=== PATIENT | female | born 1935 | race Caucasian/White ===

== ENCOUNTER 2020-01-18 14:55 | Observation (INO) ==
[2020-01-18] MEDS ORDERED: ALBUTEROL SULFATE/IPRATROPIUM 3 ML NEBU IH ONE (15:16)
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
[2020-01-18 15:48] LABS: Mean Corpuscular Hgb Conc 27.1 g/dl (32-36); NRBC# 0.1 k/mm3 (0-1); Neutrophil # 10.4 K/mm3 (1.3-6.0); Neutrophil % 76.4 % (42-75.0); Platelet Count 325 K/mm3 (150-450); Red Blood Count 2.14 M/mm3 (4.2-5.4); Red Cell Distribution Width 14.5 % (11.5-14.0); White Blood Count 13.6 K/mm3 (4.0-10.5)
[2020-01-18 15:53] LABS: Hematocrit 22.9 % (37.0-47.0); Hemoglobin 6.2 gm/dL (12.5-16.0)
[2020-01-18 16:02] LABS: Troponin I 0.042 ng/mL (0.00-0.10)
[2020-01-18 16:04] LABS: Albumin * 2.7 gm/dl (3.4-5.0); Anion Gap 10.9 mmol/L (6.8-13.8); BUN/Creatinine Ratio 32.8 (9.0-21.6); Bilirubin, Total 0.3 mg/dL (0.0-1.1); Ca. Corrected For Albumin 9.9 mg/dL (8.4-10.2); Calcium * 9.2 mg/dL (7.9-10.9); Carbon Dioxide 30.3 mmol/L (24-32.6); Potassium 4.2 mmol/L (3.4-4.6); Total Protein 6.1 gm/dL (6.2-8.2)
[2020-01-18] MEDS ORDERED: FUROSEMIDE 10 MG/ML VIAL IV ONE (16:07)
[2020-01-18] MEDS ORDERED: PANTOPRAZOLE SODIUM 40 MG in NORMAL SALINE 100 ML IV SCH (17:15)
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
[2020-01-18 17:27] LABS: Iron 10 mcg/dL (35-120); Transferrin Sat. (% Sat.) 3 % (15-55)
[2020-01-18 17:55] LABS: Folate 17.6 ng/mL (8.6-58.9)
[2020-01-18] MEDS ORDERED: FUROSEMIDE 10 MG/ML VIAL ONE (21:41)
[2020-01-18 23:02] LABS: Hematocrit 25.4 % (37.0-47.0)
[2020-01-18 23:05] LABS: Hemoglobin 7.3 gm/dL (12.5-16.0)
[2020-01-19] MEDS ORDERED: ACETAMINOPHEN 325 MG TABLET PO PRN (00:36)
[2020-01-19 06:00] LABS: Hemoglobin 8.6 gm/dL (12.5-16.0); Mean Corpuscular Hemoglobin 29.7 pg (27-31); Mean Corpuscular Hgb Conc 29.7 g/dl (32-36); Mean Platelet Volume 10.4 fl (8-12.5); NRBC# 0.1 k/mm3 (0-1); Neutrophil # 9.2 K/mm3 (1.3-6.0); Neutrophil % 73.6 % (42-75.0); Platelet Count 295 K/mm3 (150-450); Red Cell Distribution Width 16.4 % (11.5-14.0); White Blood Count 12.5 K/mm3 (4.0-10.5)
[2020-01-19 07:00] LABS: BUN/Creatinine Ratio 31.6 (9.0-21.6); Calcium * 8.6 mg/dL (7.9-10.9); Carbon Dioxide 28.1 mmol/L (24-32.6); Estimated Creat Clear 31.5; Potassium 4.1 mmol/L (3.4-4.6)
[2020-01-19] MEDS: INSULIN LISPRO 100 UNITS/ML VIAL SC SCH ×2 (07:56→12:11)
[2020-01-19] MEDS: POLYVINYL ALCOHOL 150 DROP BTL EACHEYE SCH ×2 (07:59→12:12)
[2020-01-19] MEDS: GABAPENTIN 300 MG CAPSULE PO SCH ×2 (08:01→12:13)
[2020-01-19] MEDS: CALCIUM CARBONATE 500 MG TAB.CHEW PO SCH ×2 (08:03→12:13)
[2020-01-19] MEDS ORDERED: FUROSEMIDE 10 MG/ML VIAL IV ONE ×2 (08:42→13:30)
--- NOTE | 2020-01-19 08:42 | PN ---
Progess Note - Interim Date: 01/19/20 Time: 08:38 Narrative: 01/19/20 08:38 Feels better this morming. Positive stool for occultblood x 1. Iron defeciency and B12 deficiency anemia. Hb is up to 8.6. Will give 1 more unit and will switch her to obswrvation. Will leave it to her PCP to see if family wants to be more aggressive with her anemia.
[2020-01-19] MEDS ORDERED: ASCORBIC ACID 500 MG TABLET PO SCH (09:00)
[2020-01-19] MEDS ORDERED: FUROSEMIDE 20 MG TABLET PO SCH (09:00)
[2020-01-19] MEDS ORDERED: MIRABEGRON 25 MG TAB.PO.ER PO SCH (09:00)
[2020-01-19] MEDS ORDERED: ROSUVASTATIN CALCIUM 10 MG TABLET PO SCH (09:00)
[2020-01-19] MEDS ORDERED: LOSARTAN POTASSIUM 50 MG TABLET PO SCH (09:00)
[2020-01-19] MEDS ORDERED: FERROUS SULFATE 325 MG TABLET PO SCH (09:00)
--- NOTE | 2020-01-19 09:28 | DS ---
(1) Dyspnea Problem: Acute Qualifiers: Dyspnea type: dyspnea on exertion Qualified Code(s): R06.09 - Other forms of dyspnea (2) Symptomatic anemia Problem: Acute (3) Hypertension, essential Problem: Acute (4) Hyperlipidemia Problem: Acute (5) Cardiac pacemaker Problem: Acute (6) Diabetes mellitus, type II Problem: Chronic Qualifiers: Date of Discharge:: 01/19/20 Hospital Course: Geri Sanchez is an 84-year-old white female patient of Dr. Pereira and Dr. Hernandez, resident of the [facility], with past medical history of hypertension, gastroesophageal reflux disease, cardiac pacemaker for complete heart block, hyperlipidemia, diabetes mellitus type 2, who was admitted on 01/18/2020 for shortness of breath and nonproductive cough. 5 days prior to admission the patient started having shortness of breath with nonproductive cough which was not relieved with there breathing treatments. She started having symptoms of fatigue with decreased appetite and activity so much so that she has not been going to the dining matias but started eating in her room due to the weakness. She denies any hematemesis, denies any hematochezia, denies any abdominal pain, denies any chest pain, denies any nausea, vomiting, diarrhea or constipation. In the emergency room she was found to have elevated white blood cell count of 13.6, red blood cell of 2.14, hemoglobin of 6.2 g, hematocrit of 22.9, MCV of 107, platelet of 325, BUN/creatinine ratio of 32.8, GFR 42, creatinine of 1.28, random blood sugar 107, BNP of 772, LFTs within normal limits except for slightly low ALT of 16. Her chest x-ray showed no acute cardiopulmonary findings except for cardiomegaly. Her influenza A and B were negative. She was admitted for symptomatic anemia. Her hemoglobin on 02/2018 was 8.6. Her anemia work up showed iron and B12 deficient anemia. She received 3 units of PRBC. Will start her on B12 orally for now but she may need B12 IM injections. I will leave it up to her PCP to talk to her family if they want to be aggressive with her anemia work up like endoscopy on outpatient basis. Procedures Performed: none Results and Findings: Lab Pending Results 01/18/20 15:30: Influenza Type A Ag Negative, Influenza Type B Ag Negative 01/18/20 15:40: WBC 13.6 H, RBC 2.14 L, Hgb 6.2 L*, Hct 22.9 L*, MCV 107.0 H, MCH 29.0, MCHC 27.1 L, RDW 14.5 H, Plt Count 325, MPV 10.0, Immature Gran % (Auto) 1.50 H, Immature Gran # (Auto) 0.21 H, Neutrophils % 76.4 H, Lymphocytes % 12.3 L, Monocytes % 9.3 H, Eosinophils % 0.3, Basophils % 0.2, Nucleated RBC % 0.1, Neutrophils # 10.4 H, Lymphocytes # 1.67, Monocytes # 1.3 H, Eosinophils # 0.0, Absolute Basophils 0.0 01/18/20 15:40: Sodium 139, Plasma Sodium 139, Potassium 4.2, Chloride 102, Carbon Dioxide 30.3, Anion Gap 10.9, BUN 42 H, Creatinine 1.28, Est GFR (Non-Af Amer) 42 L, BUN/Creatinine Ratio 32.8 H, Random Glucose 107, Calcium 9.2, Calcium Adj for Albumin 9.9, Total Bilirubin 0.3, AST 26, ALT 16 L, Alkaline Phosphatase 59, Troponin I 0.042, B-Natriuretic Peptide 772 H, Total Protein 6.1 L, Albumin 2.7 L 01/18/20 15:40: Iron 10 L, TIBC 396, Transferrin % Sat 3 L 01/18/20 15:40: Ferritin 20, Vitamin B12 272, Folate 17.6 01/18/20 16:29: Blood Type O Positive, Antibody Screen Negative, Crossmatch See Detail 01/18/20 16:53: Stool Occult Blood Positive H 01/18/20 22:47: Hgb 7.3 L*, Hct 25.4 L 01/19/20 05:45: WBC 12.5 H, RBC 2.90 L, Hgb 8.6 L, Hct 29.0 L, MCV 100.0, MCH 29.7, MCHC 29.7 L, RDW 16.4 H, Plt Count 295, MPV 10.4, Immature Gran % (Auto) 2.20 H, Immature Gran # (Auto) 0.28 H, Neutrophils % 73.6, Lymphocytes % 15.1 L, Monocytes % 8.1, Eosinophils % 0.5, Basophils % 0.5, Nucleated RBC % 0.1, Neutrophils # 9.2 H, Lymphocytes # 1.89, Monocytes # 1.0, Eosinophils # 0.1, Absolute Basophils 0.1 01/19/20 05:45: Sodium 139, Plasma Sodium 141, Potassium 4.1, Chloride 103, Carbon Dioxide 28.1, Anion Gap 12.0, BUN 36 H, Creatinine 1.14, Est GFR (Non-Af Amer) 49 L, BUN/Creatinine Ratio 31.6 H, Random Glucose 220 H D, Calcium 8.6 Discharge Location: [facility] Disposition: Intermediate Care Facility ICF Condition: Stable Level of Care: ICF Discharge Activity: Activity as tolerated Discharge Diet: Consistent carbs Referrals: Jass Hernandez DO [Primary Care Provider] - Additional Patient Instructions (free text): Follow up with her PCP in 1 week Prescriptions (Any new or edited meds): Cyanocobalamin [Vitamin B-12] 1,000 mcg PO DAILY #30 tab Transmission Status: Received by [facility] Complete Home Medications List: Complete Home Medication List: Rosuvastatin Calcium [Crestor] 10 mg PO DAILY 10/23/13 Vitamin E (Dl,Tocopheryl Acet) [Vitamin E] 400 units PO DAILY 10/23/13 glipiZIDE [Glipizide Xl] 10 mg PO DAILY 10/23/13 Omeprazole [Prilosec] 20 mg PO DAILY 02/27/14 [place] Oil/[place]-3 Fatty Acids [Fish Oil] 1,000 mg PO DAILY 03/14/16 sitaGLIPtin PHOSPHATE [Januvia] 100 mg PO DAILY 03/14/16 acetaminophen 500 mg tablet 650 mg PO Q4H PRN 06/08/18 albuterol sulfate 2.5 mg IH Q4H PRN 06/08/18 blood sugar diagnostic See Dose Instructions .ROUTE .MEDSUPPLY #20 ea 06/08/18 calcium carbonate 300 mg (750 mg) chewable tablet 300 mg PO QID tab 06/08/18 calcium polycarbophil 625 mg tablet 1,250 mg PO DAILY 06/08/18 ferrous sulfate 325 mg (65 mg iron) tablet 325 mg PO BID tab 06/08/18 furosemide 20 mg tablet 20 mg PO DAILY 06/08/18 gabapentin 300 mg capsule 300 mg PO TID 06/08/18 hearing aid accessory See Dose Instructions .ROUTE .MEDSUPPLY #8 ea 06/08/18 insulin aspart U-100 100 unit/mL (3 mL) subcutaneous pen 15 unit SUB-Q TID ml 06/08/18 losartan 50 mg tablet 50 mg PO DAILY 06/08/18 Acetaminophen 650 mg PO Q4H PRN 01/18/20 Albuterol Sulfate/Ipratropium [Duoneb 2.5-0.5MG/3ML Soln] 3 ml INHALATION Q4H PRN 01/18/20 Ascorbic Acid [Vitamin C] 1,000 mg PO DAILY 01/18/20 Carboxymethylcellulose Sodium [Artificial Tears] 15 ml OPHTHALMIC (EYE) PRN 01/18/20 Eucalyptus/Menthol [Cough Drops] 1 ea MM Q1H PRN 01/18/20 Insulin Detemir [Levemir] 15 units SC HS 01/18/20 Latanoprost [Xalatan] 1 drp OPHTHALMIC (EYE) HS 01/18/20 Loratadine 10 mg PO DAILY 01/18/20 Mirabegron [Myrbetriq] 50 mg PO DAILY 01/18/20 Mouthwash-Om 01/18/20 Polyvinyl Alcohol [Artificial Tears] 15 ml OPHTHALMIC (EYE) TID 01/18/20 Rosuvastatin Calcium 10 mg PO DAILY 01/18/20 guaiFENesin [Mucinex] 600 mg PO BID PRN 01/18/20 sitaGLIPtin PHOSPHATE [Januvia] 100 mg PO DAILY 01/18/20 Cyanocobalamin [Vitamin B-12] 1,000 mcg PO DAILY #30 tab 01/19/20
[2020-01-19] MEDS ORDERED: CYANOCOBALAMIN 1,000 MCG TABLET PO SCH (09:30)
[2020-01-19 19:29] VITALS: BP 139/58
[2020-01-19] MEDS ORDERED: INSULIN DETEMIR 100 UNITS/ML VIAL SC SCH (21:00)
[2020-01-19] MEDS ORDERED: PIOGLITAZONE HCL 15 MG TABLET PO SCH (21:00)
[2020-01-19] MEDS ORDERED: LATANOPROST 25 DROP BTL EACHEYE SCH (21:00)
== END 2020-01-19 16:41 ==
LOC: ER 14:55 → INTOOBSV 16:37 → MS 16:37
PROVIDERS: ADMIT Internal Medicine; ATTEND Internal Medicine
DX: Z95.0 Presence of cardiac pacemaker; E78.5 Hyperlipidemia, unspecified; I10 Essential (primary) hypertension; D64.9 Anemia, unspecified; R06.00 Dyspnea, unspecified; E11.9 Type 2 diabetes mellitus without complications
CPT/HCPCS: 36415; 36430; 71020; 71046; 80048; 80053; 82272; 82607; 82728; 82746; 83519; 83540; 83550; 83880; 84466; 84484; 85014; 85018; 85025; 86850; 87081; 87400; 87449; 93005; 94640; 94664; 96365; 96372; 96375; 99285; G0378; P9016

== ENCOUNTER 2020-01-23 10:04 | Inpatient (IN) ==
[2020-01-23] MEDS ORDERED: ALBUTEROL SULFATE/IPRATROPIUM 3 ML NEBU IH ONE (10:20)
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
[2020-01-23 10:37] LABS: Hematocrit 35.7 % (37.0-47.0); Hemoglobin 10.2 gm/dL (12.5-16.0); Mean Cell Volume 101.1 fl (78-100); Mean Corpuscular Hemoglobin 28.9 pg (27-31); Mean Corpuscular Hgb Conc 28.6 g/dl (32-36); Neutrophil % 81.2 % (42-75.0); Platelet Count 318 K/mm3 (150-450); Red Blood Count 3.53 M/mm3 (4.2-5.4); Red Cell Distribution Width 14.1 % (11.5-14.0); White Blood Count 17.2 K/mm3 (4.0-10.5)
[2020-01-23 11:01] LABS: Troponin I 0.031 ng/mL (0.00-0.10)
[2020-01-23 11:09] LABS: Albumin * 2.5 gm/dl (3.4-5.0); Anion Gap 11.5 mmol/L (6.8-13.8); BUN/Creatinine Ratio 23.8 (9.0-21.6); Bilirubin, Total 0.5 mg/dL (0.0-1.1); Ca. Corrected For Albumin 9.7 mg/dL (8.4-10.2); Calcium * 8.8 mg/dL (7.9-10.9); Carbon Dioxide 30.5 mmol/L (24-32.6); Total Protein 6.3 gm/dL (6.2-8.2)
[2020-01-23] MEDS ORDERED: AZITHROMYCIN 250 MG TABLET PO ONE (11:41)
[2020-01-23] MEDS ORDERED: cefTRIAXone SODIUM 1,000 MG/100 ML BAG IV ONE (11:41)
[2020-01-23] MEDS: FUROSEMIDE 10 MG/ML VIAL IV SCH (11:56)
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
[2020-01-23] MEDS ORDERED: ALBUTEROL SULFATE/IPRATROPIUM 3 ML NEBU IH PRN (16:49)
[2020-01-23] MEDS: GABAPENTIN 300 MG CAPSULE PO SCH (17:47)
[2020-01-23] MEDS: ACETAMINOPHEN 325 MG TABLET PO PRN (20:03)
[2020-01-23] MEDS: PIOGLITAZONE HCL 15 MG TABLET PO SCH (20:04)
[2020-01-23] MEDS: FERROUS SULFATE 325 MG TABLET PO SCH (20:05)
[2020-01-23] MEDS: LATANOPROST 25 DROP BTL OP SCH (20:05)
[2020-01-23] MEDS: INSULIN GLARGINE,HUM.REC.ANLOG 100 UNITS/ML VIAL SC SCH (20:11)
[2020-01-24] MEDS: ACETAMINOPHEN 325 MG TABLET PO PRN ×2 (02:51→12:38)
[2020-01-24 07:24] LABS: Hematocrit 33.6 % (37.0-47.0); Hemoglobin 9.5 gm/dL (12.5-16.0); Mean Cell Volume 101.2 fl (78-100); Mean Corpuscular Hemoglobin 28.6 pg (27-31); Mean Corpuscular Hgb Conc 28.3 g/dl (32-36); Mean Platelet Volume 10.5 fl (8-12.5); Neutrophil # 11.8 K/mm3 (1.3-6.0); Neutrophil % 81.6 % (42-75.0); Platelet Count 318 K/mm3 (150-450); Red Blood Count 3.32 M/mm3 (4.2-5.4); Red Cell Distribution Width 13.9 % (11.5-14.0); White Blood Count 14.5 K/mm3 (4.0-10.5)
[2020-01-24 07:55] LABS: Albumin * 2.3 gm/dl (3.4-5.0); Anion Gap 8.6 mmol/L (6.8-13.8); BUN/Creatinine Ratio 26.3 (9.0-21.6); Bilirubin, Total 0.4 mg/dL (0.0-1.1); Ca. Corrected For Albumin 9.3 mg/dL (8.4-10.2); Calcium * 8.3 mg/dL (7.9-10.9); Carbon Dioxide 32.4 mmol/L (24-32.6)
[2020-01-24] MEDS: MIRABEGRON 25 MG TAB.PO.ER PO SCH (08:23)
[2020-01-24] MEDS: ROSUVASTATIN CALCIUM 10 MG TABLET PO SCH (08:23)
[2020-01-24] MEDS: sitaGLIPtin PHOSPHATE 50 MG TABLET PO SCH (08:23)
[2020-01-24] MEDS: FERROUS SULFATE 325 MG TABLET PO SCH ×2 (08:23→21:03)
[2020-01-24] MEDS: GABAPENTIN 300 MG CAPSULE PO SCH ×3 (08:23→16:21)
[2020-01-24] MEDS: glipiZIDE 5 MG TAB.SR.24H PO SCH (08:23)
[2020-01-24] MEDS: LOSARTAN POTASSIUM 50 MG TABLET PO SCH (08:23)
[2020-01-24] MEDS: PANTOPRAZOLE SODIUM 20 MG TABLET.DR PO SCH (08:24)
[2020-01-24] MEDS: FUROSEMIDE 10 MG/ML VIAL IV SCH (08:31)
[2020-01-24] MEDS: ALBUTEROL SULFATE/IPRATROPIUM 3 ML NEBU IH SCH ×4 (09:59→22:06)
--- NOTE | 2020-01-24 10:04 | PN ---
Subjective - Date and Time Seen Date: 01/24/20 Time: 09:15 Subjective Narrative: She states she feels okay but has a cough and some shortness of breath. Objective - Review of Systems Generalized/Overall Review: Denies: Fever Respiratory: Reports: Cough, Shortness of Breath Cardiac: Denies: Chest Pain Abdominal: Denies: Abdominal Pain Misc: All systems neg except as marked - Vitals Vitals: Last Vital Signs Temp 36.6 C 01/24/20 07:47 Pulse 90 01/24/20 08:31 Resp 18 01/24/20 07:47 BP 117/35 01/24/20 08:31 Pulse Ox 91 L 01/24/20 07:47 - Abnormal Lab Findings Abnormal Lab Findings: Abnormal Lab Results 01/23/20 01/23/20 01/24/20 Range/Units 10:34 10:34 07:06 WBC 17.2 H 14.5 H (4.0-10.5) K/mm3 RBC 3.53 L 3.32 L (4.2-5.4) M/mm3 Hgb 10.2 L 9.5 L (12.5-16.0) gm/dL Hct 35.7 L 33.6 L (37.0-47.0) % MCV 101.1 H 101.2 H (78-100) fl MCHC 28.6 L 28.3 L (32-36) g/dl RDW 14.1 H (11.5-14.0) % Immature Gran % (Auto) 1.30 H 1.20 H (0.001-0.429) % Immature Gran # (Auto) 0.23 H 0.18 H (0.000-0.0310) K/mm3 Neutrophils % 81.2 H 81.6 H (42-75.0) % Lymphocytes % 8.0 L 6.5 L (20-51) % Neutrophils # 14.0 H 11.8 H (1.3-6.0) K/mm3 Lymphocytes # 1.38 L 0.94 L (1.5-3.5) k/mm3 Monocytes # 1.4 H 1.2 H (0.0-1.0) k/mm3 BUN 31 H (3-23) mg/dL Est GFR (Non-Af Amer) 42 L (60-130) mL/min BUN/Creatinine Ratio 23.8 H (9.0-21.6) Random Glucose 147 H (70-110) mg/dL ALT 16 L (19-67) U/L B-Natriuretic Peptide 1088 H (5-550) pg/mL Total Protein (6.2-8.2) gm/dL Albumin 2.5 L (3.4-5.0) gm/dl 01/24/20 Range/Units 07:06 WBC (4.0-10.5) K/mm3 RBC (4.2-5.4) M/mm3 Hgb (12.5-16.0) gm/dL Hct (37.0-47.0) % MCV (78-100) fl MCHC (32-36) g/dl RDW (11.5-14.0) % Immature Gran % (Auto) (0.001-0.429) % Immature Gran # (Auto) (0.000-0.0310) K/mm3 Neutrophils % (42-75.0) % Lymphocytes % (20-51) % Neutrophils # (1.3-6.0) K/mm3 Lymphocytes # (1.5-3.5) k/mm3 Monocytes # (0.0-1.0) k/mm3 BUN 31 H (3-23) mg/dL Est GFR (Non-Af Amer) 47 L (60-130) mL/min BUN/Creatinine Ratio 26.3 H (9.0-21.6) Random Glucose 241 H D (70-110) mg/dL ALT 14 L (19-67) U/L B-Natriuretic Peptide (5-550) pg/mL Total Protein 6.0 L (6.2-8.2) gm/dL Albumin 2.3 L (3.4-5.0) gm/dl - Exam Constitutional: Present: Alert, Cooperative, Well developed, Well nourished, No distress, Elderly, Obese ENT Exam: Present: hearing grossly normal Neck: Present: non-tender, supple. Absent: lymphadenopathy (R), lymphadenopathy (L) Respiratory: Present: no accessory muscle use, rhonchi - On inspiration and expiration, No wheezing Cardiovascular/Chest: Present: normal peripheral pulses, regular rate, rhythm, no murmur Abdomen: Present: Normal bowel sounds, soft, nontender Extremity: Present: no pedal edema Skin Exam: Present: normal color, warm/dry Neurologic: Present: alert, normal mood/affect Appearance: Present: appropriate appearance Eye contact: Present: cooperative Thoughts: Present: normal thought pattern, normal mood /affect Assessment/Plan Plan Narrative: 84-year-old female with a past medical history of diabetes mellitus type 2, GERD, hypertension, hyperlipidemia, complete AV block, osteoporosis, pneumonia incontinence presents from [facility] with complaints of shortness of breath and fever for the past few days. She was recently admitted with anemia and required 2 units of blood about 1 week ago. She was discharged back to the care center and returned again today. She has a nonproductive cough. In the emergency room today she is afebrile,, tachypneic and requiring 1/2 L of oxygen to keep her oxygen saturation greater than 90%. Chest x-ray is negative for any acute cardiopulmonary process but on auscultation she has diffuse rhonchi throughout all lung monge. She also has leukocytosis of 17,000, influenza was negative and a BNP of 1088. He is being admitted for presumed pneumonia and started on ceftriaxone and azithromycin. Plan #1 continue with ceftriaxone and azithromycin, day 2 #2 wean off of oxygen as tolerated #3 repeat CBC and BMP in the morning #4 duo nebs every 4 hours as needed #5 resume home medications for comorbidities #5 obtain respiratory viral panel #6 start guaifenesin - Problems/Diagnosis (1) Hypoxia Problem: Acute (2) Pneumonia Problem: Suspected Qualifiers: Pneumonia type: due to unspecified organism Laterality: unspecified laterality Lung location: unspecified part of lung Qualified Code(s): J18.9 - Pneumonia, unspecified organism (3) Hypertension, essential Problem: Acute (4) Hyperlipidemia Problem: Acute (5) Diabetes mellitus, type II Problem: Chronic Qualifiers: Diabetes mellitus mcc insulin use: with mcc use (6) GERD (gastroesophageal reflux disease) Problem: Chronic (7) Glaucoma Problem: Chronic Qualifiers: Glaucoma type: unspecified Laterality: unspecified laterality Qualified Code(s): H40.9 - Unspecified glaucoma (8) Osteoporosis Problem: Chronic (9) Degenerative joint disease Problem: Chronic Qualifiers: Osteoarthritis location: multiple joints Osteoarthritis type: primary Qualified Code(s): M15.0 - Primary generalized (osteo)arthritis (10) Tinea inguinalis Problem: Acute (11) Acute bronchitis due to human metapneumovirus Problem: Acute
[2020-01-24] MEDS: NYSTATIN 15 APPL BTL TP SCH ×2 (10:52→21:03)
[2020-01-24] MEDS: ENOXAPARIN SODIUM 40 MG/0.4 ML SYRG SC SCH (10:53)
[2020-01-24] MEDS: AZITHROMYCIN 250 MG TABLET PO SCH (10:53)
[2020-01-24] MEDS ORDERED: FUROSEMIDE 10 MG/ML VIAL IV SCH ×2 (12:30→14:00)
[2020-01-24] MEDS: INSULIN LISPRO 100 UNITS/ML VIAL SC SCH (16:56)
[2020-01-24] MEDS: PIOGLITAZONE HCL 15 MG TABLET PO SCH (21:02)
[2020-01-24] MEDS: INSULIN GLARGINE,HUM.REC.ANLOG 100 UNITS/ML VIAL SC SCH (21:03)
[2020-01-24] MEDS: LATANOPROST 25 DROP BTL OP SCH (21:03)
[2020-01-25] MEDS: ALBUTEROL SULFATE/IPRATROPIUM 3 ML NEBU IH SCH ×6 (02:27→22:20)
[2020-01-25 06:56] LABS: Hematocrit 31.7 % (37.0-47.0); Hemoglobin 9.1 gm/dL (12.5-16.0); Mean Corpuscular Hemoglobin 28.7 pg (27-31); Mean Corpuscular Hgb Conc 28.7 g/dl (32-36); Mean Platelet Volume 10.5 fl (8-12.5); Neutrophil # 10.3 K/mm3 (1.3-6.0); Neutrophil % 79.9 % (42-75.0); Platelet Count 343 K/mm3 (150-450); Red Blood Count 3.17 M/mm3 (4.2-5.4); Red Cell Distribution Width 13.6 % (11.5-14.0); White Blood Count 12.9 K/mm3 (4.0-10.5)
[2020-01-25 07:09] LABS: Albumin * 2.2 gm/dl (3.4-5.0); Anion Gap 9.3 mmol/L (6.8-13.8); BUN/Creatinine Ratio 25.4 (9.0-21.6); Bilirubin, Total 0.3 mg/dL (0.0-1.1); Ca. Corrected For Albumin 9.3 mg/dL (8.4-10.2); Calcium * 8.2 mg/dL (7.9-10.9); Carbon Dioxide 30.7 mmol/L (24-32.6); Total Protein 5.8 gm/dL (6.2-8.2)
[2020-01-25] MEDS: PANTOPRAZOLE SODIUM 20 MG TABLET.DR PO SCH (07:45)
[2020-01-25] MEDS: INSULIN LISPRO 100 UNITS/ML VIAL SC SCH ×3 (07:45→17:10)
[2020-01-25] MEDS ORDERED: FUROSEMIDE 10 MG/ML VIAL IV SCH (09:00)
[2020-01-25] MEDS: LOSARTAN POTASSIUM 50 MG TABLET PO SCH (09:03)
[2020-01-25] MEDS: ROSUVASTATIN CALCIUM 10 MG TABLET PO SCH (09:04)
[2020-01-25] MEDS: FERROUS SULFATE 325 MG TABLET PO SCH ×2 (09:04→20:46)
[2020-01-25] MEDS: glipiZIDE 5 MG TAB.SR.24H PO SCH (09:05)
[2020-01-25] MEDS: FUROSEMIDE 20 MG TABLET PO SCH (09:05)
[2020-01-25] MEDS: sitaGLIPtin PHOSPHATE 50 MG TABLET PO SCH (09:05)
[2020-01-25] MEDS: NYSTATIN 15 APPL BTL TP SCH ×2 (09:06→20:45)
[2020-01-25] MEDS: MIRABEGRON 25 MG TAB.PO.ER PO SCH (09:06)
[2020-01-25] MEDS: AZITHROMYCIN 250 MG TABLET PO SCH (09:07)
[2020-01-25] MEDS: GABAPENTIN 300 MG CAPSULE PO SCH ×3 (09:07→17:10)
--- NOTE | 2020-01-25 11:03 | PN ---
Subjective - Date and Time Seen Date: 01/25/20 Time: 08:48 Subjective Narrative: She continues to have a productive cough but overall feels better. Objective - Review of Systems Generalized/Overall Review: Denies: Chills, Fever Respiratory: Reports: Cough. Denies: Shortness of Breath Cardiac: Denies: Chest Pain Abdominal: Denies: Abdominal Pain Misc: All systems neg except as marked - Vitals Vitals: Last Vital Signs Temp 36.7 C 01/25/20 10:11 Pulse 80 01/25/20 10:22 Resp 18 01/25/20 10:22 BP 127/51 01/25/20 10:11 Pulse Ox 97 01/25/20 10:14 - Abnormal Lab Findings Abnormal Lab Findings: Abnormal Lab Results 01/24/20 01/25/20 01/25/20 Range/Units 14:06 06:50 06:50 WBC 12.9 H (4.0-10.5) K/mm3 RBC 3.17 L (4.2-5.4) M/mm3 Hgb 9.1 L (12.5-16.0) gm/dL Hct 31.7 L (37.0-47.0) % MCHC 28.7 L (32-36) g/dl Immature Gran % (Auto) 1.20 H (0.001-0.429) % Immature Gran # (Auto) 0.16 H (0.000-0.0310) K/mm3 Neutrophils % 79.9 H (42-75.0) % Lymphocytes % 7.7 L (20-51) % Monocytes % 9.5 H (0.0-9) % Neutrophils # 10.3 H (1.3-6.0) K/mm3 Lymphocytes # 0.99 L (1.5-3.5) k/mm3 Monocytes # 1.2 H (0.0-1.0) k/mm3 BUN 35 H (3-23) mg/dL Est GFR (Non-Af Amer) 39 L (60-130) mL/min BUN/Creatinine Ratio 25.4 H (9.0-21.6) Random Glucose 222 H (70-110) mg/dL ALT 12 L (19-67) U/L Total Protein 5.8 L (6.2-8.2) gm/dL Albumin 2.2 L (3.4-5.0) gm/dl Human Metapneumovir PCR Detected H (NotDetected) - Exam Constitutional: Present: Alert, Cooperative, Well developed, Well nourished, No distress, Elderly ENT Exam: Present: hearing grossly normal Neck: Present: non-tender, supple. Absent: lymphadenopathy (R), lymphadenopathy (L) Respiratory: Present: no respiratory distress, no accessory muscle use, rhonchi - On expiration primarily in the bases bilaterally. Air movement has improved since admission., No wheezing. Absent: crackles Cardiovascular/Chest: Present: normal peripheral pulses, regular rate, rhythm, no edema, no murmur Abdomen: Present: Normal bowel sounds, soft, nontender Extremity: Present: no pedal edema Skin Exam: Present: normal color, warm/dry Neurologic: Present: alert, normal mood/affect Appearance: Present: appropriate appearance, appropriate insight Eye contact: Present: cooperative Thoughts: Present: normal mood /affect Assessment/Plan Plan Narrative: 84-year-old female with a past medical history of diabetes mellitus type 2, GERD, hypertension, hyperlipidemia, complete AV block, osteoporosis, pneumonia incontinence presents from [facility] with complaints of shortness of breath and fever for the past few days. She was recently admitted with anemia and required 2 units of blood about 1 week ago. She was discharged back to the care center and returned again today. She has a nonproductive cough. In the emergency room today she is afebrile,, tachypneic and requiring 1/2 L of oxygen to keep her oxygen saturation greater than 90%. Chest x-ray is negative for any acute cardiopulmonary process but on auscultation she has diffuse rhonchi throughout all lung monge. She also has leukocytosis of 17,000, influenza was negative and a BNP of 1088. He is being admitted for presumed pneumonia and started on ceftriaxone and azithromycin. Respiratory viral panel is positive for human metapneumovirus. She has been weaned off of the oxygen. I spoke with the nursing staff to encourage ambulation and physical therapy has been ordered. Plan #1 continue with ceftriaxone and azithromycin, day 3 #2 Ambulate as tolerated, consult PT #3 repeat CBC and BMP in the morning #4 duo nebs every 4 hours as needed #6 resume home medications for comorbidities #7 she is positive for human metapneumovirus #8 Continue with guaifenesin #9 start using a [place] to help break up the mucus #10 discharge planning for tomorrow - Problems/Diagnosis (1) Hypoxia Problem: Acute (2) Pneumonia Problem: Suspected Qualifiers: Pneumonia type: due to unspecified organism Laterality: unspecified laterality Lung location: unspecified part of lung Qualified Code(s): J18.9 - Pneumonia, unspecified organism (3) Hypertension, essential Problem: Acute (4) Hyperlipidemia Problem: Acute (5) Diabetes mellitus, type II Problem: Chronic Qualifiers: Diabetes mellitus long term care phlebotomist insulin use: with long term care phlebotomist use (6) GERD (gastroesophageal reflux disease) Problem: Chronic (7) Glaucoma Problem: Chronic Qualifiers: Glaucoma type: unspecified Laterality: unspecified laterality Qualified Code(s): H40.9 - Unspecified glaucoma (8) Osteoporosis Problem: Chronic (9) Degenerative joint disease Problem: Chronic Qualifiers: Osteoarthritis location: multiple joints Osteoarthritis type: primary Qualified Code(s): M15.0 - Primary generalized (osteo)arthritis (10) Tinea inguinalis Problem: Acute (11) Acute bronchitis due to human metapneumovirus Problem: Acute
[2020-01-25] MEDS: ENOXAPARIN SODIUM 40 MG/0.4 ML SYRG SC SCH (11:32)
[2020-01-25] MEDS: LATANOPROST 25 DROP BTL OP SCH (20:45)
[2020-01-25] MEDS: PIOGLITAZONE HCL 15 MG TABLET PO SCH (20:46)
[2020-01-25] MEDS: INSULIN GLARGINE,HUM.REC.ANLOG 100 UNITS/ML VIAL SC SCH (20:47)
[2020-01-26] MEDS: ALBUTEROL SULFATE/IPRATROPIUM 3 ML NEBU IH SCH ×6 (02:57→22:32)
[2020-01-26 07:22] LABS: Hematocrit 32.9 % (37.0-47.0); Hemoglobin 9.2 gm/dL (12.5-16.0); Mean Cell Volume 99.7 fl (78-100); Mean Corpuscular Hemoglobin 27.9 pg (27-31); Mean Platelet Volume 10.2 fl (8-12.5); Neutrophil # 9.9 K/mm3 (1.3-6.0); Neutrophil % 76.7 % (42-75.0); Platelet Count 374 K/mm3 (150-450); Red Cell Distribution Width 13.3 % (11.5-14.0); White Blood Count 12.9 K/mm3 (4.0-10.5)
[2020-01-26 07:36] LABS: Albumin * 2.3 gm/dl (3.4-5.0); Anion Gap 8.7 mmol/L (6.8-13.8); BUN/Creatinine Ratio 27.1 (9.0-21.6); Bilirubin, Total 0.3 mg/dL (0.0-1.1); Ca. Corrected For Albumin 8.9 mg/dL (8.4-10.2); Calcium * 7.9 mg/dL (7.9-10.9); Carbon Dioxide 30.8 mmol/L (24-32.6); Potassium 4.5 mmol/L (3.4-4.6); Total Protein 6.1 gm/dL (6.2-8.2)
[2020-01-26] MEDS: PANTOPRAZOLE SODIUM 20 MG TABLET.DR PO SCH (07:39)
[2020-01-26] MEDS: INSULIN LISPRO 100 UNITS/ML VIAL SC SCH ×3 (07:39→17:57)
[2020-01-26] MEDS: LOSARTAN POTASSIUM 50 MG TABLET PO SCH (08:14)
[2020-01-26] MEDS: ROSUVASTATIN CALCIUM 10 MG TABLET PO SCH (08:15)
[2020-01-26] MEDS: sitaGLIPtin PHOSPHATE 50 MG TABLET PO SCH (08:15)
[2020-01-26] MEDS: glipiZIDE 5 MG TAB.SR.24H PO SCH (08:15)
[2020-01-26] MEDS: FERROUS SULFATE 325 MG TABLET PO SCH ×2 (08:15→21:10)
[2020-01-26] MEDS: FUROSEMIDE 20 MG TABLET PO SCH (08:16)
[2020-01-26] MEDS: NYSTATIN 15 APPL BTL TP SCH ×2 (08:16→21:11)
[2020-01-26] MEDS: GABAPENTIN 300 MG CAPSULE PO SCH ×3 (08:17→17:56)
[2020-01-26] MEDS: MIRABEGRON 25 MG TAB.PO.ER PO SCH (08:17)
[2020-01-26] MEDS: AZITHROMYCIN 250 MG TABLET PO SCH (08:17)
--- NOTE | 2020-01-26 09:13 | PN ---
Subjective - Date and Time Seen Date: 01/26/20 Time: 08:54 Subjective Narrative: She states she feels good. She does have a nonproductive cough. Objective - Review of Systems Generalized/Overall Review: Denies: Fever Respiratory: Reports: Cough. Denies: Shortness of Breath Abdominal: Denies: Abdominal Pain Misc: All systems neg except as marked - Vitals Vitals: Last Vital Signs Temp 37.3 C 01/26/20 06:34 Pulse 88 01/26/20 08:16 Resp 17 01/26/20 06:35 BP 129/45 01/26/20 08:16 Pulse Ox 97 01/26/20 06:34 - Abnormal Lab Findings Abnormal Lab Findings: Abnormal Lab Results 01/26/20 01/26/20 Range/Units 07:10 07:10 WBC 12.9 H (4.0-10.5) K/mm3 RBC 3.30 L (4.2-5.4) M/mm3 Hgb 9.2 L (12.5-16.0) gm/dL Hct 32.9 L (37.0-47.0) % MCHC 28.0 L (32-36) g/dl Immature Gran % (Auto) 1.10 H (0.001-0.429) % Immature Gran # (Auto) 0.14 H (0.000-0.0310) K/mm3 Neutrophils % 76.7 H (42-75.0) % Lymphocytes % 9.2 L (20-51) % Monocytes % 10.8 H (0.0-9) % Neutrophils # 9.9 H (1.3-6.0) K/mm3 Lymphocytes # 1.19 L (1.5-3.5) k/mm3 Monocytes # 1.4 H (0.0-1.0) k/mm3 BUN 39 H (3-23) mg/dL Creatinine 1.44 H (0.4-1.4) mg/dL Est GFR (Non-Af Amer) 37 L (60-130) mL/min BUN/Creatinine Ratio 27.1 H (9.0-21.6) Random Glucose 235 H (70-110) mg/dL ALT 11 L (19-67) U/L Total Protein 6.1 L (6.2-8.2) gm/dL Albumin 2.3 L (3.4-5.0) gm/dl - Exam Constitutional: Present: Alert, Cooperative, Well developed, Well nourished, No distress, Elderly ENT Exam: Present: hearing grossly normal Neck: Present: non-tender. Absent: lymphadenopathy (R), lymphadenopathy (L) Respiratory: Present: no respiratory distress, no accessory muscle use, rhonchi - On expiration throughout all lung monge. Improving, No wheezing. Absent: crackles Cardiovascular/Chest: Present: normal peripheral pulses, no murmur, edema - Trace bilateral lower extremity edema Abdomen: Present: Normal bowel sounds, soft, nontender Extremity: Present: lower extremity edema - Trace bilateral lower extremity edema Skin Exam: Present: normal color, warm/dry Neurologic: Present: alert, normal mood/affect Appearance: Present: appropriate appearance Eye contact: Present: cooperative Thoughts: Present: normal mood /affect Assessment/Plan Plan Narrative: 84-year-old female with a past medical history of diabetes mellitus type 2, GERD, hypertension, hyperlipidemia, complete AV block, osteoporosis, pneumonia incontinence presents from [facility] with complaints of shortness of breath and fever for the past few days. She was recently admitted with anemia and required 2 units of blood about 1 week ago. [facility] today. She has a nonproductive cough. In the emergency room today she is afebrile,, tachypneic and requiring 1/2 L of oxygen to keep her oxygen saturation greater than 90%. Chest x-ray is negative for any acute cardiopulmonary process but on auscultation she has diffuse rhonchi throughout all lung monge. She also has leukocytosis of 17,000, influenza was negative and a BNP of 1088. He is being admitted for presumed pneumonia and started on ceftriaxone and azithromycin. She had a mild exacerbation of her congestive heart failure. She received IV Lasix on admission and was transitioned back to her baseline dose of oral Lasix. Respiratory viral panel is positive for human metapneumovirus. She has been weaned off of the oxygen. I spoke with the nursing staff to encourage ambulation and physical therapy has been ordered. Her renal function has declined slightly. I have asked the nursing staff to encourage oral hydration. Plan #1 continue with ceftriaxone and azithromycin, day 4 of 5. #2 Ambulate as tolerated, consult PT #3 duo nebs every 4 hours as needed #4 resume home medications for comorbidities #5 she is positive for human metapneumovirus #6 Continue with guaifenesin #8 start using a Cornet to help break up the mucus #8 discharge planning for tomorrow - Problems/Diagnosis (1) Hypoxia Problem: Acute (2) Pneumonia Problem: Suspected Qualifiers: Pneumonia type: due to unspecified organism Laterality: unspecified laterality Lung location: unspecified part of lung Qualified Code(s): J18.9 - Pneumonia, unspecified organism (3) Hypertension, essential Problem: Acute (4) Hyperlipidemia Problem: Acute (5) Diabetes mellitus, type II Problem: Chronic Qualifiers: Diabetes mellitus snf insulin use: with snf use (6) GERD (gastroesophageal reflux disease) Problem: Chronic (7) Glaucoma Problem: Chronic Qualifiers: Glaucoma type: unspecified Laterality: unspecified laterality Qualified Code(s): H40.9 - Unspecified glaucoma (8) Osteoporosis Problem: Chronic (9) Degenerative joint disease Problem: Chronic Qualifiers: Osteoarthritis location: multiple joints Osteoarthritis type: primary Qualified Code(s): M15.0 - Primary generalized (osteo)arthritis (10) Tinea inguinalis Problem: Acute (11) Acute bronchitis due to human metapneumovirus Problem: Acute (12) CHF (congestive heart failure) Problem: Acute Qualifiers: Heart failure type: unspecified Heart failure chronicity: acute on chronic Qualified Code(s): I50.9 - Heart failure, unspecified
[2020-01-26] MEDS: ENOXAPARIN SODIUM 40 MG/0.4 ML SYRG SC SCH (10:47)
[2020-01-26] MEDS: INSULIN GLARGINE,HUM.REC.ANLOG 100 UNITS/ML VIAL SC SCH (21:08)
[2020-01-26] MEDS: LATANOPROST 25 DROP BTL OP SCH (21:09)
[2020-01-26] MEDS: PIOGLITAZONE HCL 15 MG TABLET PO SCH (21:10)
[2020-01-27] MEDS: ALBUTEROL SULFATE/IPRATROPIUM 3 ML NEBU IH SCH ×3 (02:16→10:11)
[2020-01-27] MEDS: INSULIN LISPRO 100 UNITS/ML VIAL SC SCH (08:03)
[2020-01-27] MEDS: MIRABEGRON 25 MG TAB.PO.ER PO SCH (08:03)
[2020-01-27] MEDS: PANTOPRAZOLE SODIUM 20 MG TABLET.DR PO SCH (08:04)
[2020-01-27] MEDS: AZITHROMYCIN 250 MG TABLET PO SCH (08:04)
[2020-01-27] MEDS: sitaGLIPtin PHOSPHATE 50 MG TABLET PO SCH (08:04)
[2020-01-27] MEDS: LOSARTAN POTASSIUM 50 MG TABLET PO SCH (08:04)
[2020-01-27] MEDS: ROSUVASTATIN CALCIUM 10 MG TABLET PO SCH (08:04)
[2020-01-27] MEDS: GABAPENTIN 300 MG CAPSULE PO SCH (08:04)
[2020-01-27] MEDS: FERROUS SULFATE 325 MG TABLET PO SCH (08:04)
[2020-01-27] MEDS: FUROSEMIDE 20 MG TABLET PO SCH (08:05)
[2020-01-27] MEDS: NYSTATIN 15 APPL BTL TP SCH (08:06)
[2020-01-27] MEDS: ACETAMINOPHEN 325 MG TABLET PO PRN (08:19)
[2020-01-27] MEDS: glipiZIDE 5 MG TAB.SR.24H PO SCH (08:19)
--- NOTE | 2020-01-27 09:28 | DS ---
(1) Hypoxia Problem: Acute (2) Pneumonia Problem: Suspected Qualifiers: Pneumonia type: due to unspecified organism Laterality: unspecified laterality Lung location: unspecified part of lung Qualified Code(s): J18.9 - Pneumonia, unspecified organism (3) Hypertension, essential Problem: Acute (4) Hyperlipidemia Problem: Acute (5) Diabetes mellitus, type II Problem: Chronic Qualifiers: Diabetes mellitus group home insulin use: with watermaster use (6) GERD (gastroesophageal reflux disease) Problem: Chronic (7) Glaucoma Problem: Chronic Qualifiers: Glaucoma type: unspecified Laterality: unspecified laterality Qualified Code(s): H40.9 - Unspecified glaucoma (8) Osteoporosis Problem: Chronic (9) Degenerative joint disease Problem: Chronic Qualifiers: Osteoarthritis location: multiple joints Osteoarthritis type: primary Qualified Code(s): M15.0 - Primary generalized (osteo)arthritis (10) Tinea inguinalis Problem: Acute (11) Acute bronchitis due to human metapneumovirus Problem: Acute (12) CHF (congestive heart failure) Problem: Acute Qualifiers: Heart failure type: unspecified Heart failure chronicity: acute on chronic Qualified Code(s): I50.9 - Heart failure, unspecified Hospital Course: 84-year-old female with a past medical history of diabetes mellitus type 2, GERD, hypertension, hyperlipidemia, complete AV block, osteoporosis, pneumonia incontinence presents from [facility] with complaints of shortness of breath and fever for the past few days. She was recently admitted with anemia and required 2 units of blood about 1 week ago. She was discharged back to the [facility] and returned again today. She has a nonproductive cough. In the emergency room today she is afebrile,, tachypneic and requiring 1/2 L of oxygen to keep her oxygen saturation greater than 90%. Chest x-ray is negative for any acute cardiopulmonary process but on auscultation she has diffuse rhonchi throughout all lung monge. She also has leukocytosis of 17,000, influenza was negative and a BNP of 1088. He is being admitted for presumed pneumonia and started on ceftriaxone and azithromycin. She completed her course of ceftriaxone and azithromycin while hospitalized She had a mild exacerbation of her congestive heart failure. She received IV Lasix on admission and was transitioned back to her baseline dose of oral Lasix. Respiratory viral panel was positive for human metapneumovirus. She has been weaned off of the oxygen. She is doing well and her respiratory status has improved significantly. She will be discharged back to [facility] for skilled rehab. . Procedures Performed: none Results and Findings: Pending Mircobiology Results 01/23/20 11:01 Blood Blood Culture - Preliminary NO GROWTH AFTER 48 HOURS 01/23/20 10:34 Blood Blood Culture - Preliminary NO GROWTH AFTER 48 HOURS Lab Pending Results 01/23/20 10:22: Influenza Type A Ag Negative, Influenza Type B Ag Negative 01/23/20 10:30: Lactic Acid, Venous 1.2 01/23/20 10:34: WBC 17.2 H, RBC 3.53 L, Hgb 10.2 L, Hct 35.7 L, MCV 101.1 H, MCH 28.9, MCHC 28.6 L, RDW 14.1 H, Plt Count 318, MPV 10.0, Immature Gran % (Auto) 1.30 H, Immature Gran # (Auto) 0.23 H, Neutrophils % 81.2 H, Lymphocytes % 8.0 L, Monocytes % 8.1, Eosinophils % 0.9, Basophils % 0.5, Nucleated RBC % 0.0, Neutrophils # 14.0 H, Lymphocytes # 1.38 L, Monocytes # 1.4 H, Eosinophils # 0.2, Absolute Basophils 0.1 01/23/20 10:34: Sodium 138, Plasma Sodium 139, Potassium 4.0, Chloride 100, Carbon Dioxide 30.5, Anion Gap 11.5, BUN 31 H, Creatinine 1.30, Est GFR (Non-Af Amer) 42 L, BUN/Creatinine Ratio 23.8 H, Random Glucose 147 H, Calcium 8.8, Calcium Adj for Albumin 9.7, Total Bilirubin 0.5, AST 17, ALT 16 L, Alkaline Phosphatase 52, Troponin I 0.031, B-Natriuretic Peptide 1088 H, Total Protein 6.3, Albumin 2.5 L 01/24/20 07:06: WBC 14.5 H, RBC 3.32 L, Hgb 9.5 L, Hct 33.6 L, MCV 101.2 H, MCH 28.6, MCHC 28.3 L, RDW 13.9, Plt Count 318, MPV 10.5, Immature Gran % (Auto) 1.20 H, Immature Gran # (Auto) 0.18 H, Neutrophils % 81.6 H, Lymphocytes % 6.5 L, Monocytes % 8.5, Eosinophils % 1.9, Basophils % 0.3, Nucleated RBC % 0.0, Neutrophils # 11.8 H, Lymphocytes # 0.94 L, Monocytes # 1.2 H, Eosinophils # 0.3, Absolute Basophils 0.1 01/24/20 07:06: Sodium 137, Plasma Sodium 139, Potassium 4.0, Chloride 100, Carbon Dioxide 32.4, Anion Gap 8.6, BUN 31 H, Creatinine 1.18, Est GFR (Non-Af Amer) 47 L, BUN/Creatinine Ratio 26.3 H, Random Glucose 241 H D, Calcium 8.3, Calcium Adj for Albumin 9.3, Total Bilirubin 0.4, AST 15, ALT 14 L, Alkaline Phosphatase 54, Total Protein 6.0 L, Albumin 2.3 L 01/24/20 14:06: Chlamy pneumoniae PCR Not detected, Adenovirus (PCR) Not detected, B. pertussis DNA (PCR) Not detected, Coronavirus OC43 (PCR) Not detected, Coronavirus HKU1 (PCR) Not detected, Coronavirus 229E (PCR) Not detected, Coronavirus NL63 (PCR) Not detected, Human Metapneumovir PCR Detected H, Influenza A (H1) PCR Not detected, Influenza A (H1N1) PCR Not detected, Influenza A (H3) PCR Not detected, Influenza B (RT-PCR) Not detected, M. pneumoniae (PCR) Not detected, Parainfluenza 1 (PCR) Not detected, Parainfluenza 2 (PCR) Not detected, Parainfluenza 3 (PCR) Not detected, Parainfluenza 4 (PCR) Not detected, RSV (PCR) Not detected, Rhinovirus (PCR) Not detected 01/25/20 06:50: WBC 12.9 H, RBC 3.17 L, Hgb 9.1 L, Hct 31.7 L, MCV 100.0, MCH 28.7, MCHC 28.7 L, RDW 13.6, Plt Count 343, MPV 10.5, Immature Gran % (Auto) 1.20 H, Immature Gran # (Auto) 0.16 H, Neutrophils % 79.9 H, Lymphocytes % 7.7 L, Monocytes % 9.5 H, Eosinophils % 1.3, Basophils % 0.4, Nucleated RBC % 0.0, Neutrophils # 10.3 H, Lymphocytes # 0.99 L, Monocytes # 1.2 H, Eosinophils # 0.2, Absolute Basophils 0.1 01/25/20 06:50: Sodium 136, Plasma Sodium 138, Potassium 4.0, Chloride 100, Carbon Dioxide 30.7, Anion Gap 9.3, BUN 35 H, Creatinine 1.38, Est GFR (Non-Af Amer) 39 L, BUN/Creatinine Ratio 25.4 H, Random Glucose 222 H, Calcium 8.2, Calcium Adj for Albumin 9.3, Total Bilirubin 0.3, AST 15, ALT 12 L, Alkaline Phosphatase 55, Total Protein 5.8 L, Albumin 2.2 L 01/26/20 07:10: WBC 12.9 H, RBC 3.30 L, Hgb 9.2 L, Hct 32.9 L, MCV 99.7, MCH 27.9, MCHC 28.0 L, RDW 13.3, Plt Count 374, MPV 10.2, Immature Gran % (Auto) 1.10 H, Immature Gran # (Auto) 0.14 H, Neutrophils % 76.7 H, Lymphocytes % 9.2 L, Monocytes % 10.8 H, Eosinophils % 1.7, Basophils % 0.5, Nucleated RBC % 0.0, Neutrophils # 9.9 H, Lymphocytes # 1.19 L, Monocytes # 1.4 H, Eosinophils # 0.2, Absolute Basophils 0.1 01/26/20 07:10: Sodium 134, Plasma Sodium 136, Potassium 4.5, Chloride 99, Carbon Dioxide 30.8, Anion Gap 8.7, BUN 39 H, Creatinine 1.44 H, Est GFR (Non-Af Amer) 37 L, BUN/Creatinine Ratio 27.1 H, Random Glucose 235 H, Calcium 7.9, Calcium Adj for Albumin 8.9, Total Bilirubin 0.3, AST 15, ALT 11 L, Alkaline Phosphatase 56, Total Protein 6.1 L, Albumin 2.3 L Discharge Location: [facility] Disposition: SNF Condition: Stable Level of Care: SNF Discharge Activity: Activity as tolerated Discharge Diet: Low salt [facility] Therapy: Physical Therapy, Occupation Therapy Referrals: Hamilton Fagan [Other] Additional Patient Instructions (free text): Discharging to [facility]. Please call and fax discharge information to [facility]. Complete Home Medications List: Complete Home Medication List: Rosuvastatin Calcium [Crestor] 10 mg PO DAILY 10/23/13 Vitamin E (Dl,Tocopheryl Acet) [Vitamin E] 400 units PO DAILY 10/23/13 glipiZIDE [Glipizide Xl] 10 mg PO DAILY 10/23/13 Omeprazole [Prilosec] 20 mg PO DAILY 02/27/14 [place] Oil/[place]-3 Fatty Acids [Fish Oil] 1,000 mg PO DAILY 03/14/16 acetaminophen 500 mg tablet 650 mg PO Q4H PRN 06/08/18 blood sugar diagnostic See Dose Instructions .ROUTE .MEDSUPPLY #20 ea 06/08/18 calcium carbonate 300 mg (750 mg) chewable tablet 300 mg PO QID tab 06/08/18 calcium polycarbophil 625 mg tablet 1,250 mg PO DAILY 06/08/18 ferrous sulfate 325 mg (65 mg iron) tablet 325 mg PO BID tab 06/08/18 furosemide 20 mg tablet 20 mg PO DAILY 06/08/18 gabapentin 300 mg capsule 300 mg PO TID 06/08/18 hearing aid accessory See Dose Instructions .ROUTE .MEDSUPPLY #8 ea 06/08/18 losartan 50 mg tablet 50 mg PO DAILY 06/08/18 Acetaminophen 650 mg PO Q4H PRN 01/18/20 Albuterol Sulfate/Ipratropium [Duoneb 2.5-0.5MG/3ML Soln] 3 ml INHALATION Q4H PRN 01/18/20 Ascorbic Acid [Vitamin C] 1,000 mg PO DAILY 01/18/20 Carboxymethylcellulose Sodium [Artificial Tears] 15 ml OPHTHALMIC (EYE) PRN 01/18/20 Eucalyptus/Menthol [Cough Drops] 1 ea MM Q1H PRN 01/18/20 Insulin Detemir [Levemir] 15 units SC HS 01/18/20 Latanoprost [Xalatan] 1 drp OPHTHALMIC (EYE) HS 01/18/20 Loratadine 10 mg PO DAILY 01/18/20 Mirabegron [Myrbetriq] 50 mg PO DAILY 01/18/20 Mouthwash-Om 01/18/20 Polyvinyl Alcohol [Artificial Tears] 15 ml OPHTHALMIC (EYE) TID 01/18/20 guaiFENesin [Mucinex] 600 mg PO BID PRN 01/18/20 sitaGLIPtin PHOSPHATE [Januvia] 100 mg PO DAILY 01/18/20 Cyanocobalamin [Vitamin B-12] 1,000 mcg PO DAILY #30 tab 01/19/20 Aspirin [Aspirin EC] 81 mg PO DAILY 01/23/20 Insulin Aspart [Novolog] See Protocol SC HS 01/23/20 Insulin Aspart [Novolog] See Protocol SC TID 01/23/20 Nystatin [Mycostatin Powder] 1 appl TOPICAL BID PRN 01/23/20 Pioglitazone HCl 45 mg PO HS 01/23/20
[2020-01-27 10:42] VITALS: BP 110/42
== END 2020-01-27 11:00 | DRG 202 ==
LOC: ER 10:04 → MS 10:04
PROVIDERS: ADMIT Internal Medicine; ATTEND Internal Medicine
DX: M15.0 Primary generalized (osteo)arthritis; J20.8 Acute bronchitis due to other specified organisms; E11.9 Type 2 diabetes mellitus without complications; R09.02 Hypoxemia; B35.8 Other dermatophytoses; Z79.4 Long term (current) use of insulin; I50.9 Heart failure, unspecified; I11.0 Hypertensive heart disease with heart failure; Z87.891 Personal history of nicotine dependence; K21.9 Gastro-esophageal reflux disease without esophagitis; H40.9 Unspecified glaucoma; J18.9 Pneumonia, unspecified organism; M81.0 Age-related osteoporosis without current pathological fracture
CPT/HCPCS: 36415; 71020; 71046; 80053; 83519; 83605; 83880; 84484; 85025; 87040; 87081; 87400; 87449; 87633; 93005; 94640; 94664; 94760; 96365; 96372; 96375; 97110; 97116; 97161; 97530; 99285; G0378

== ENCOUNTER 2021-04-15 14:13 | Observation (INO) ==
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
[2021-04-15 14:34] LABS: Mean Cell Volume 90.2 fl (78-100); Mean Corpuscular Hemoglobin 23.4 pg (27-31); Mean Corpuscular Hgb Conc 25.9 g/dl (32-36); Mean Platelet Volume 11.1 fl (8-12.5); Neutrophil # 10.8 K/mm3 (1.3-6.0); Neutrophil % 79.9 % (42-75.0); Platelet Count 404 K/mm3 (150-450); Red Blood Count 2.14 M/mm3 (4.2-5.4); Red Cell Distribution Width 15.6 % (11.5-14.0); White Blood Count 13.5 K/mm3 (4.0-10.5)
[2021-04-15 14:37] LABS: Hematocrit 19.3 % (37.0-47.0)
[2021-04-15 14:50] LABS: Albumin * 2.9 gm/dl (3.4-5.0); Anion Gap 12.7 mmol/L (6.8-13.8); BUN/Creatinine Ratio 23.9 (9.0-21.6); Bilirubin, Total 0.3 mg/dL (0.0-1.1); Ca. Corrected For Albumin 10.2 mg/dL (8.4-10.2); Calcium * 9.6 mg/dL (7.9-10.9); Potassium 4.7 mmol/L (3.4-4.6); Total Protein 6.3 gm/dL (6.2-8.2)
[2021-04-15 15:17] LABS: Urine Bilirubin Negative (NEGATIVE); Urine Blood Negative /ul (NEGATIVE); Urine Ketone Negative (NEGATIVE); Urine Protein Negative (NEGATIVE); Urine Urobilinogen Normal (NORMAL)
[2021-04-15 15:24] LABS: Urine Appearance Clear (CLEAR); Urine Bacteria 2+; Urine Color Yellow; Urine Nitrite Positive (NEGATIVE); Urine RBC None Seen /hpf (0-5)
[2021-04-15] MEDS ORDERED: NYSTATIN 15 APPL BTL TP PRN (16:57)
[2021-04-15] MEDS ORDERED: PROMETHAZINE HCL 25 MG TABLET PO PRN (16:57)
[2021-04-15] MEDS ORDERED: ACETAMINOPHEN 325 MG TABLET PO PRN (16:57)
[2021-04-15] MEDS ORDERED: GLYCERIN/PROPYLENE GLYCOL 150 DROP BTL OP PRN (16:57)
[2021-04-15] MEDS ORDERED: NYSTATIN 15 APPL TUBE TP PRN (16:57)
[2021-04-15] MEDS ORDERED: LIDOCAINE HCL 15 ML UDC PO PRN (16:57)
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
[2021-04-15] MEDS: GLYCERIN/PROPYLENE GLYCOL 150 DROP BTL OP SCH (17:51)
[2021-04-15] MEDS: GABAPENTIN 300 MG CAPSULE PO SCH (17:52)
[2021-04-15] MEDS: CALCIUM CARBONATE 500 MG TAB.CHEW PO SCH ×2 (17:52→20:53)
[2021-04-15] MEDS ORDERED: FUROSEMIDE 10 MG/ML VIAL IV ONE (20:47)
[2021-04-15] MEDS: metFORMIN HCL 500 MG TABLET PO SCH (20:52)
[2021-04-15] MEDS: FERROUS SULFATE 325 MG TABLET PO SCH (20:53)
[2021-04-15] MEDS ORDERED: LATANOPROST 25 DROP BTL OP SCH (21:00)
[2021-04-15] MEDS ORDERED: ROSUVASTATIN CALCIUM 10 MG TABLET PO SCH (21:00)
[2021-04-15] MEDS ORDERED: PIOGLITAZONE HCL 15 MG TABLET PO SCH (21:00)
[2021-04-15] MEDS ORDERED: FUROSEMIDE 10 MG/ML VIAL ONE (22:16)
[2021-04-16 04:13] LABS: Hematocrit 26.4 % (37.0-47.0)
[2021-04-16 04:23] LABS: Hemoglobin 7.6 gm/dL (12.5-16.0)
[2021-04-16] MEDS ORDERED: PANTOPRAZOLE SODIUM 20 MG TABLET.DR PO SCH (07:00)
[2021-04-16] MEDS: GLYCERIN/PROPYLENE GLYCOL 150 DROP BTL OP SCH ×2 (08:53→12:23)
[2021-04-16] MEDS: CALCIUM CARBONATE 500 MG TAB.CHEW PO SCH ×2 (08:53→12:23)
[2021-04-16] MEDS: GABAPENTIN 300 MG CAPSULE PO SCH ×2 (08:53→12:23)
[2021-04-16] MEDS: metFORMIN HCL 500 MG TABLET PO SCH (08:54)
[2021-04-16] MEDS: FERROUS SULFATE 325 MG TABLET PO SCH (08:54)
[2021-04-16] MEDS ORDERED: ASPIRIN 81 MG TABLET.DR PO SCH (09:00)
[2021-04-16] MEDS ORDERED: LORATADINE 10 MG TABLET PO SCH (09:00)
[2021-04-16] MEDS ORDERED: sitaGLIPtin PHOSPHATE 50 MG TABLET PO SCH (09:00)
[2021-04-16] MEDS ORDERED: LOSARTAN POTASSIUM 50 MG TABLET PO SCH (09:00)
[2021-04-16] MEDS ORDERED: CALCIUM POLYCARBOPHIL 625 MG TABLET PO SCH (09:00)
[2021-04-16] MEDS ORDERED: MIRABEGRON 25 MG TAB.PO.ER PO SCH (09:00)
[2021-04-16] MEDS ORDERED: INSULIN GLARGINE,HUM.REC.ANLOG 100 UNITS/ML VIAL SC SCH (09:00)
[2021-04-16] MEDS ORDERED: FUROSEMIDE 20 MG TABLET PO SCH (09:00)
[2021-04-16 10:11] LABS: Hematocrit 26.9 % (37.0-47.0); Mean Cell Volume 89.1 fl (78-100); Mean Corpuscular Hemoglobin 25.8 pg (27-31); Mean Platelet Volume 9.8 fl (8-12.5); Neutrophil % 81.8 % (42-75.0); Platelet Count 319 K/mm3 (150-450); Red Blood Count 3.02 M/mm3 (4.2-5.4); Red Cell Distribution Width 14.9 % (11.5-14.0); White Blood Count 12.2 K/mm3 (4.0-10.5)
[2021-04-16 10:28] LABS: Hemoglobin 7.8 gm/dL (12.5-16.0)
[2021-04-16] MEDS ORDERED: CIPROFLOXACIN HCL 250 MG TABLET PO SCH (11:00)
--- NOTE | 2021-04-16 12:32 | DS ---
(1) Anemia Problem: Acute (2) Diabetes mellitus, type II Problem: Chronic Qualifiers: Diabetes mellitus fdc insulin use: with fdc use Diabetes mellitus complication status: with neurologic complications Diabetes mellitus complication detail: with polyneuropathy Qualified Code(s): E11.42 - Type 2 diabetes mellitus with diabetic polyneuropathy; Z79.4 - long-term (current) use of insulin (3) Hypertension, essential Problem: Acute (4) Atrioventricular block, complete Problem: Chronic (5) GERD (gastroesophageal reflux disease) Problem: Chronic (6) Hyperlipidemia Problem: Chronic (7) UTI (urinary tract infection) Problem: Acute Date of Discharge:: 04/16/21 Hospital Course: 85-year-old female with history of chronic anemia presented to the hospital after lab work done by her care center found her to have a hemoglobin of 5.2. When she got here, her hemoglobin was 5.0. She was transfused 2 units and her hemoglobin came up to 7.8 prior to discharge. She had an elevated white count at 13.5 but was asymptomatic and had no concerns at the time. White count upon discharge was 12.2. She did have a urine culture that came back positive for gram-negative bacilli grown 100,000 colony-forming units. Patient endorsed some symptoms from her urine today and was started on Cipro 250 mg twice daily which she will need to be on for 5 days. Otherwise her vital signs been stable and she is been afebrile. She is feeling much better after being transfused. She is likely having bleeding issues from her colon as she had a large tubular adenoma seen on her previous colonoscopy with Dr. Diamond 3 months previously. The plan is for him to repeat the colonoscopy to remove this but has not been able to do so at this time. I think this is scheduled and will be done as soon as possible. Otherwise there are no changes to her chronic medications aside from starting Cipro. Recommend she follow-up with Dr. Diamond as previously determined, according to his last note though on the fifth this was a planned colonoscopy and I recommend she proceed with this as directed. 1 hour spent today with patient, determining treatment plan with med reconciliation, planning for follow-ups, and dictating this note. Procedures Performed: none Results and Findings: Pending Mircobiology Results 04/15/21 15:09 Urine,Catheterized Urine Culture - Preliminary Gram Negative Bacilli Lab Pending Results 04/15/21 14:25: WBC 13.5 H, RBC 2.14 L, Hgb 5.0 L*, Hct 19.3 L*, MCV 90.2, MCH 23.4 L, MCHC 25.9 L, RDW 15.6 H, Plt Count 404, MPV 11.1, Immature Gran % (Auto) 1.20 H, Immature Gran # (Auto) 0.16 H, Neutrophils % 79.9 H, Lymphocytes % 9.9 L, Monocytes % 7.0, Eosinophils % 1.8, Basophils % 0.2, Nucleated RBC % 0.0, Neutrophils # 10.8 H, Lymphocytes # 1.33 L, Monocytes # 0.9, Eosinophils # 0.2, Absolute Basophils 0.0 04/15/21 14:25: Sodium 135, Plasma Sodium 138, Potassium 4.7 H, Chloride 99, Carbon Dioxide 28.0, Anion Gap 12.7, BUN 28 H, Creatinine 1.17, Est GFR (Non-Af Amer) 47 L, BUN/Creatinine Ratio 23.9 H, Random Glucose 289 H, Calcium 9.6, Calcium Adj for Albumin 10.2, Total Bilirubin 0.3, AST 40, ALT 21, Alkaline Phosphatase 65, Total Protein 6.3, Albumin 2.9 L 04/15/21 14:25: Blood Type O Positive, Antibody Screen Negative, Crossmatch See Detail 04/15/21 14:58: SARS-CoV-2 (PCR) Not detected 04/15/21 15:09: Urine Color Yellow, Urine Appearance Clear, Urine pH 6.0, Ur Specific [place] 1.010, Urine Protein Negative, Urine Glucose (UA) Negative, Urine Ketones Negative, Urine Blood Negative, Urine Nitrate Positive H, Urine Bilirubin Negative, Urine Urobilinogen Normal, Ur Leukocyte Esterase 75 H, Urine RBC None seen, Urine WBC 5-10 H, Ur Epithelial Cells 0-5, Urine Bacteria 2+ H, Urine Culture Comments Culture to follow 04/16/21 04:07: Hgb 7.6 L* D, Hct 26.4 L 04/16/21 10:10: WBC 12.2 H, RBC 3.02 L, Hgb 7.8 L*, Hct 26.9 L, MCV 89.1, MCH 25.8 L, MCHC 29.0 L, RDW 14.9 H, Plt Count 319, MPV 9.8, Immature Gran % (Auto) 0.70 H, Immature Gran # (Auto) 0.09 H, Neutrophils % 81.8 H, Lymphocytes % 7.4 L, Monocytes % 7.7, Eosinophils % 2.0, Basophils % 0.4, Nucleated RBC % 0.0, Neutrophils # 10.0 H, Lymphocytes # 0.90 L, Monocytes # 0.9, Eosinophils # 0.2, Absolute Basophils 0.1 Discharge Location: [facility] Disposition: SNF Condition: Fair Level of Care: SNF Discharge Activity: Activity as tolerated Discharge Diet: General/regular food Half-Way Therapy: Physical Therapy, Occupation Therapy, Speech Therapy Referrals: Hamilton Fagan, [facility] [Primary Care Provider] - One Week Additional Patient Instructions (free text): [facility]- SNF, PT, OT, Speech Therapy to evaluate and treat. Prescriptions (Any new or edited meds): Ciprofloxacin HCl [Cipro] 250 mg PO BID@1100,2300 #9 tab Transmission Status: Pending to [facility] Complete Home Medications List: Complete Home Medication List: Acetaminophen [Tylenol] 650 mg PO Q4H PRN 04/15/21 Aspirin [Aspirin EC] 81 mg PO DAILY 04/15/21 Calcium Carbonate [Tums] 750 mg PO QID 04/15/21 Calcium Polycarbophil [Fiber Laxative] 1,250 mg PO DAILY 04/15/21 Carboxymethylcellulose Sodium [Refresh Tears] 1 drp OP BID PRN 04/15/21 Eucalyptus/Menthol [Cough Drops] 1 ea MM Q1H PRN 04/15/21 Ferrous Sulfate [Iron] 325 mg PO BID 04/15/21 Furosemide [Lasix] 20 mg PO DAILY 04/15/21 Gabapentin 300 mg PO TID 04/15/21 Glycerin/Propylene Glycol [Artificial Tears] 1 drp OP TID 04/15/21 Insulin Detemir [Levemir] 20 units SQ DAILY 04/15/21 Latanoprost/Pf [Latanoprost 0.005% Eye Drop] 1 drp OP HS 04/15/21 Lidocaine HCl [Lidocaine HCl Viscous 2%] 1 appl MM QID PRN 04/15/21 Loratadine 10 mg PO DAILY 04/15/21 Losartan Potassium [Cozaar] 50 mg PO DAILY 04/15/21 Mirabegron [Myrbetriq] 50 mg PO DAILY 04/15/21 Multivitamin 1 ea PO DAILY 04/15/21 Nystatin [Mycostatin Cream] 1 appl TP BID PRN 04/15/21 Nystatin [Mycostatin Powder] 1 appl TP BID PRN 04/15/21 Omeprazole 20 mg PO DAILY 04/15/21 Pioglitazone HCl [Actos] 45 mg PO HS 04/15/21 Promethazine HCl 12.5 mg PO Q4H PRN 04/15/21 Rosuvastatin Calcium 10 mg PO DAILY 04/15/21 metFORMIN HCL [Metformin HCl] 500 mg PO BID 04/15/21 sitaGLIPtin PHOSPHATE [Januvia] 100 mg PO DAILY 04/15/21 Ciprofloxacin HCl [Cipro] 250 mg PO BID@1100,2300 #9 tab 04/16/21
[2021-04-16 13:43] VITALS: BP 146/51
== END 2021-04-16 14:50 ==
LOC: ER 14:13 → MS 14:13
PROVIDERS: ADMIT Family Medicine; ATTEND Family Medicine

== ENCOUNTER 2021-04-22 11:50 | Observation (INO) ==
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
[2021-04-22 13:12] LABS: Mean Cell Volume 90.2 fl (78-100); Mean Corpuscular Hemoglobin 25.4 pg (27-31); Mean Corpuscular Hgb Conc 28.1 g/dl (32-36); Mean Platelet Volume 9.9 fl (8-12.5); Neutrophil # 9.7 K/mm3 (1.3-6.0); Neutrophil % 75.4 % (42-75.0); Platelet Count 306 K/mm3 (150-450); Red Blood Count 2.56 M/mm3 (4.2-5.4); Red Cell Distribution Width 14.5 % (11.5-14.0); White Blood Count 12.9 K/mm3 (4.0-10.5)
[2021-04-22 13:15] LABS: Hematocrit 23.1 % (37.0-47.0); Hemoglobin 6.5 gm/dL (12.5-16.0)
[2021-04-22 13:19] LABS: Prothrombin Time (Patient) 11.1 Seconds (9.1-10.7)
[2021-04-22 13:22] LABS: INR 1.07 INR (0.92-1.08)
[2021-04-22 13:27] LABS: Albumin * 2.7 gm/dl (3.4-5.0); BUN/Creatinine Ratio 26.8 (9.0-21.6); Bilirubin, Total 0.4 mg/dL (0.0-1.1); Ca. Corrected For Albumin 9.4 mg/dL (8.4-10.2); Calcium * 8.7 mg/dL (7.9-10.9); Carbon Dioxide 31.2 mmol/L (24-32.6); Potassium 4.2 mmol/L (3.4-4.6); Total Protein 5.9 gm/dL (6.2-8.2)
[2021-04-22] MEDS ORDERED: BENZOCAINE/MENTHOL 16 EACH BOX MM PRN (18:47)
[2021-04-22] MEDS ORDERED: GLYCERIN/PROPYLENE GLYCOL 150 DROP BTL EACHEYE PRN (18:48)
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
[2021-04-22] MEDS ORDERED: INSULIN ASPART 100 UNITS/ML VIAL SC SCH (21:00)
[2021-04-22] MEDS ORDERED: PROMETHAZINE HCL 25 MG TABLET PO PRN (21:09)
[2021-04-22] MEDS: INSULIN LISPRO 100 UNITS/ML VIAL SC SCH (21:22)
[2021-04-22] MEDS: CALCIUM CARBONATE 500 MG TAB.CHEW PO SCH (21:24)
[2021-04-22] MEDS: metFORMIN HCL 500 MG TABLET PO SCH (21:24)
[2021-04-22] MEDS: ACETAMINOPHEN 325 MG TABLET PO PRN (21:50)
[2021-04-23 00:01] LABS: Hematocrit 25.9 % (37.0-47.0)
[2021-04-23 00:05] LABS: Hemoglobin 7.4 gm/dL (12.5-16.0)
[2021-04-23] MEDS: ACETAMINOPHEN 325 MG TABLET PO PRN (03:40)
[2021-04-23 06:59] LABS: Hematocrit 26.5 % (37.0-47.0); Mean Cell Volume 88.9 fl (78-100); Mean Corpuscular Hemoglobin 25.5 pg (27-31); Mean Corpuscular Hgb Conc 28.7 g/dl (32-36); Mean Platelet Volume 10.6 fl (8-12.5); Neutrophil # 10.2 K/mm3 (1.3-6.0); Neutrophil % 75.8 % (42-75.0); Platelet Count 330 K/mm3 (150-450); Red Blood Count 2.98 M/mm3 (4.2-5.4); Red Cell Distribution Width 14.7 % (11.5-14.0); White Blood Count 13.5 K/mm3 (4.0-10.5)
[2021-04-23] MEDS ORDERED: PANTOPRAZOLE SODIUM 20 MG TABLET.DR PO SCH (07:00)
[2021-04-23] MEDS: INSULIN LISPRO 100 UNITS/ML VIAL SC SCH (07:04)
[2021-04-23 07:07] LABS: Hemoglobin 7.6 gm/dL (12.5-16.0)
--- NOTE | 2021-04-23 08:46 | DS ---
(1) Anemia Problem: Chronic Qualifiers: Anemia type: iron deficiency Iron deficiency anemia type: chronic blood loss Qualified Code(s): D50.0 - Iron deficiency anemia secondary to blood loss (chronic) (2) Diabetes mellitus, type II Problem: Chronic Qualifiers: Diabetes mellitus fpc insulin use: with terminal gauger supervisor use Diabetes mellitus complication status: with neurologic complications Diabetes mellitus complication detail: with polyneuropathy Qualified Code(s): E11.42 - Type 2 diabetes mellitus with diabetic polyneuropathy; Z79.4 - shelter (current) use of insulin (3) Cardiac pacemaker Problem: Chronic (4) GERD (gastroesophageal reflux disease) Problem: Chronic (5) Atrioventricular block, complete Problem: Chronic (6) GERD (gastroesophageal reflux disease) Problem: Chronic (7) Hypertension, essential, benign Problem: Chronic (8) History of 2019 novel coronavirus disease (COVID-19) Problem: Resolved Date of Discharge:: 04/23/21 Hospital Course: Patient with PMHx of dementia living in a care center, diabetes, HTN, cardiac pacemaker, GERD, AV block, heart failure, was sent to the ED after her physical therapist thought she was more confused than normal. Her nurse felt like she was at her baseline level of confusion, but she was sent to the ED for eval. In the ED, she complained of shoulder pain, and one view xray did not reveal osseous abnormality. Her hemoglobin was 6.5, so she was admitted for a transfusion. She was admitted here last week and given two U PRBC, and is scheduled for a colonoscopy on 04/26/21. At the time of my admission exam, she does not know why she is here, and replies "I don't know" to ROS questions. Her vitals are normal. Occult stool was positive. WBC slightly high at 12.9, and was 12.2 last week. Her WBC has been elevated for the last several checks, and may be due to the intra-abdominal process that's causing her anemia. Chart review shows she was treated for a UTI last week with cipro. COVID negative. Her hgb improved to 7.4 after one U PRBC, and was 7.6 in the morning. She was still confused in the morning, and this was felt to be her baseline. I do not believe her anemia was symptomatic. Since she has a history of CHF in her chart and she was asymptomatic, she was only given one U PRBC. Of note, she does not need an additional COVID test prior to her previously scheduled colonoscopy on 04/25/21. Procedures Performed: none Results and Findings: Lab Pending Results 04/22/21 12:52: WBC 12.9 H, RBC 2.56 L, Hgb 6.5 L*, Hct 23.1 L*, MCV 90.2, MCH 25.4 L, MCHC 28.1 L, RDW 14.5 H, Plt Count 306, MPV 9.9, Immature Gran % (Auto) 0.50 H, Immature Gran # (Auto) 0.07 H, Neutrophils % 75.4 H, Lymphocytes % 10.1 L, Monocytes % 10.9 H, Eosinophils % 2.7, Basophils % 0.4, Nucleated RBC % 0.0, Neutrophils # 9.7 H, Lymphocytes # 1.30 L, Monocytes # 1.4 H, Eosinophils # 0.4, Absolute Basophils 0.1 04/22/21 12:52: PT 11.1 H, INR (Anticoag Therapy) 1.07 04/22/21 12:52: Sodium 137, Plasma Sodium 139, Potassium 4.2, Chloride 102, Carbon Dioxide 31.2, Anion Gap 8.0, BUN 30 H, Creatinine 1.12, Est GFR (Non-Af Amer) 49 L, BUN/Creatinine Ratio 26.8 H, Random Glucose 227 H, Calcium 8.7, Calcium Adj for Albumin 9.4, Total Bilirubin 0.4, AST 18, ALT 23, Alkaline Phosphatase 55, Total Protein 5.9 L, Albumin 2.7 L 04/22/21 12:52: Blood Type O Positive, Antibody Screen Negative, Crossmatch See Detail 04/22/21 14:12: Stool Occult Blood Positive H 04/22/21 15:46: SARS-CoV-2 (PCR) Not detected 04/22/21 23:51: Hgb 7.4 L*, Hct 25.9 L 04/23/21 06:30: WBC 13.5 H, RBC 2.98 L, Hgb 7.6 L*, Hct 26.5 L, MCV 88.9, MCH 25.5 L, MCHC 28.7 L, RDW 14.7 H, Plt Count 330, MPV 10.6, Immature Gran % (Auto) 0.80 H, Immature Gran # (Auto) 0.11 H, Neutrophils % 75.8 H, Lymphocytes % 10.4 L, Monocytes % 10.4 H, Eosinophils % 2.3, Basophils % 0.3, Nucleated RBC % 0.0, Neutrophils # 10.2 H, Lymphocytes # 1.41 L, Monocytes # 1.4 H, Eosinophils # 0.3, Absolute Basophils 0.0 Discharge Location: [facility] Disposition: SNF Condition: Good Level of Care: SNF Discharge Activity: Activity as tolerated Discharge Diet: General/regular food Referrals: Hamilton Fagan, [facility] [Primary Care Provider] - Two Weeks Additional Patient Instructions (free text): SNF back at [facility] for PT and OT to evaluate and treat. Complete Home Medications List: Complete Home Medication List: Acetaminophen [Tylenol] 650 mg PO Q4H PRN 04/15/21 Aspirin [Aspirin EC] 81 mg PO DAILY 04/15/21 Calcium Carbonate [Tums] 750 mg PO QID 04/15/21 Carboxymethylcellulose Sodium [Refresh Tears] 1 drp OP BID PRN 04/15/21 Eucalyptus/Menthol [Cough Drops] 1 ea MM Q1H PRN 04/15/21 Ferrous Sulfate [Iron] 325 mg PO BID 04/15/21 Furosemide [Lasix] 20 mg PO DAILY 04/15/21 Gabapentin 300 mg PO TID 04/15/21 Glycerin/Propylene Glycol [Artificial Tears] 1 drp OP TID 04/15/21 Insulin Detemir [Levemir] 20 units SQ DAILY 04/15/21 Latanoprost/Pf [Latanoprost 0.005% Eye Drop] 1 drp OP HS 04/15/21 Lidocaine HCl [Lidocaine HCl Viscous 2%] 1 appl MM QID PRN 04/15/21 Loratadine 10 mg PO DAILY 04/15/21 Losartan Potassium [Cozaar] 50 mg PO DAILY 04/15/21 Mirabegron [Myrbetriq] 50 mg PO DAILY 04/15/21 Multivitamin 1 ea PO DAILY 04/15/21 Omeprazole 20 mg PO DAILY 04/15/21 Pioglitazone HCl [Actos] 45 mg PO HS 04/15/21 Promethazine HCl 12.5 mg PO Q4H PRN 04/15/21 Rosuvastatin Calcium 10 mg PO DAILY 04/15/21 metFORMIN HCL [Metformin HCl] 500 mg PO BID 04/15/21 sitaGLIPtin PHOSPHATE [Januvia] 100 mg PO DAILY 04/15/21 Calcium Polycarbophil [Fiber Laxative] 1,250 mg PO DAILY 04/22/21 Forms: Patient Portal Registration
[2021-04-23] MEDS ORDERED: INSULIN GLARGINE,HUM.REC.ANLOG 100 UNITS/ML VIAL SC SCH (09:00)
[2021-04-23] MEDS ORDERED: FUROSEMIDE 20 MG TABLET PO SCH (09:00)
[2021-04-23] MEDS ORDERED: INSULIN DETEMIR 100 UNITS/ML VIAL SC SCH (09:00)
[2021-04-23] MEDS ORDERED: LOSARTAN POTASSIUM 50 MG TABLET PO SCH (09:00)
[2021-04-23] MEDS: metFORMIN HCL 500 MG TABLET PO SCH (09:12)
[2021-04-23] MEDS: CALCIUM CARBONATE 500 MG TAB.CHEW PO SCH (09:12)
[2021-04-23 10:32] VITALS: BP 149/49
== END 2021-04-23 11:00 ==
LOC: ER 11:50 → MS 16:53 → INTOOBSV 16:53 → MS 17:22
PROVIDERS: ADMIT Family Medicine; ATTEND Family Medicine

== ENCOUNTER 2021-04-30 10:56 | Observation (INO) ==
[2021-04-30 12:19] LABS: Mean Cell Volume 88.6 fl (78-100); Mean Corpuscular Hemoglobin 24.7 pg (27-31); Mean Corpuscular Hgb Conc 27.9 g/dl (32-36); Mean Platelet Volume 9.6 fl (8-12.5); Neutrophil # 9.1 K/mm3 (1.3-6.0); Neutrophil % 76.6 % (42-75.0); Platelet Count 464 K/mm3 (150-450); Red Blood Count 2.55 M/mm3 (4.2-5.4); Red Cell Distribution Width 14.3 % (11.5-14.0); White Blood Count 11.8 K/mm3 (4.0-10.5)
[2021-04-30 12:39] LABS: Hematocrit 22.6 % (37.0-47.0); Hemoglobin 6.3 gm/dL (12.5-16.0)
[2021-04-30 12:50] LABS: Albumin * 2.8 gm/dl (3.4-5.0); Anion Gap 12.1 mmol/L (6.8-13.8); BUN/Creatinine Ratio 29.6 (9.0-21.6); Bilirubin, Total 0.3 mg/dL (0.0-1.1); Ca. Corrected For Albumin 9.6 mg/dL (8.4-10.2); Carbon Dioxide 28.9 mmol/L (24-32.6); Total Protein 6.1 gm/dL (6.2-8.2)
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
[2021-04-30 14:51] LABS: Urine Bilirubin Negative (NEGATIVE); Urine Blood Negative /ul (NEGATIVE); Urine Ketone Negative (NEGATIVE); Urine Nitrite Negative (NEGATIVE); Urine Protein Negative (NEGATIVE); Urine Specific Gravity <=1.005 SP.GR. (1.005-1.010); Urine Urobilinogen Normal (NORMAL)
[2021-04-30 15:03] LABS: Urine Appearance Slightly Cloudy (CLEAR); Urine Bacteria 4+; Urine Color Pale Yellow; Urine RBC None Seen /hpf (0-5); Urine WBC TRACE /hpf (0-5)
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
[2021-04-30] MEDS ORDERED: ACETAMINOPHEN 325 MG TABLET PO PRN (19:23)
[2021-05-01 00:33] LABS: Hematocrit 24.9 % (37.0-47.0)
[2021-05-01 07:43] LABS: Hematocrit 29.2 % (37.0-47.0); Hemoglobin 8.5 gm/dL (12.5-16.0); Mean Cell Volume 87.4 fl (78-100); Mean Corpuscular Hemoglobin 25.4 pg (27-31); Mean Corpuscular Hgb Conc 29.1 g/dl (32-36); Mean Platelet Volume 9.4 fl (8-12.5); Neutrophil # 6.4 K/mm3 (1.3-6.0); Platelet Count 444 K/mm3 (150-450); Red Blood Count 3.34 M/mm3 (4.2-5.4); Red Cell Distribution Width 14.7 % (11.5-14.0); White Blood Count 9.5 K/mm3 (4.0-10.5)
--- NOTE | 2021-05-01 09:26 | DS ---
(1) Blood loss anemia Problem: Chronic (2) GI bleeding Problem: Chronic (3) Diverticulosis Problem: Chronic (4) Tubular adenoma of colon Problem: Chronic (5) Dementia Problem: Chronic (6) Diabetes mellitus, type II Problem: Chronic Qualifiers: (7) Cardiac pacemaker Problem: Chronic (8) Hypertension, essential Problem: Acute (9) GERD (gastroesophageal reflux disease) Problem: Chronic Date of Discharge:: 05/01/21 Hospital Course: Patient is a resident of a [facility], and has a history of recent GI bleed requiring numerous transfusions, dementia, DM, HTN, pacemaker, HLD, GERD. History mostly obtained from ERP, as she tells me she's not sure why she's here. She was sent here for increased confusion. Hgb here was 6.3, so she is admit quin for transfusion of PRBC. She was given 2 U PRBC, and her hgb improved to 8.0. This is the 3rd hospital admission for this same problem in the last month. A colonoscopy was attempted last week, but she was insufficiently prepped. She had a colonoscopy in December of this year, which showed a tubular adenoma and extensive diverticulosis. The extensive diverticulosis may be the source of her ongoing bleed. Talked with her son, Allen, who was unaware of those diagnoses. He'd like to continue diagnostic testing and treatment at this time, but discussed the possibility that we may not be able to cure her, and this may keep happening. Another option in the future, to avoid further hospitalizations, would be to check hemoglobin at the [facility] and give a transfusion through [facility] earlier in the day. With this ongoing GI bleed, dementia, DM, HTN, I believe she is a hospice candidate. Will stop her aspirin, and recommend avoiding NSAIDS. Will also start pepcid. Her son has concerns about worsened confusion with this medicine, and can switch to omeprazole if needed. She will be DC'd back to [place] after a one night stay. 45 minutes spent on DC examining patient, writing note, discussing with son, and placing orders. Procedures Performed: none Results and Findings: Pending Mircobiology Results 04/30/21 14:32 Urine,Catheterized Urine Culture - Preliminary Gram Negative Bacilli Lab Pending Results 04/30/21 12:12: WBC 11.8 H D, RBC 2.55 L, Hgb 6.3 L*, Hct 22.6 L*, MCV 88.6, MCH 24.7 L, MCHC 27.9 L, RDW 14.3 H, Plt Count 464 H, MPV 9.6, Immature Gran % (Auto) 1.20 H, Immature Gran # (Auto) 0.14 H, Neutrophils % 76.6 H, Lymphocytes % 10.3 L, Monocytes % 8.9, Eosinophils % 2.5, Basophils % 0.5, Nucleated RBC % 0.0, Neutrophils # 9.1 H, Lymphocytes # 1.22 L, Monocytes # 1.1 H, Eosinophils # 0.3, Absolute Basophils 0.1 04/30/21 12:12: Sodium 140, Plasma Sodium 141, Potassium 5.0 H, Chloride 104, Carbon Dioxide 28.9, Anion Gap 12.1, BUN 37 H, Creatinine 1.25, Est GFR (Non-Af Amer) 44 L, BUN/Creatinine Ratio 29.6 H, Random Glucose 182 H, Calcium 9.0, Calcium Adj for Albumin 9.6, Total Bilirubin 0.3, AST 17, ALT 19, Alkaline Phosphatase 76, Total Protein 6.1 L, Albumin 2.8 L 04/30/21 12:12: Blood Type O Positive, Antibody Screen Negative, Crossmatch See Detail 04/30/21 12:15: Stool Occult Blood Positive H 04/30/21 13:15: SARS-CoV-2 (PCR) Not detected 04/30/21 14:32: Urine Color Pale yellow, Urine Appearance Slightly cloudy, Urine pH 6.0, Ur Specific [place] <=1.005, Urine Protein Negative, Urine Glucose (UA) Negative, Urine Ketones Negative, Urine Blood Negative, Urine Nitrate Negative, Urine Bilirubin Negative, Urine Urobilinogen Normal, Ur Leukocyte Esterase 25 H, Urine RBC None seen, Urine WBC Trace H, Ur Epithelial Cells 5-10 H, Urine Bacteria 4+ H, Urine Culture Comments Culture to follow 05/01/21 00:22: Hgb 7.0 L*, Hct 24.9 L 05/01/21 07:35: WBC 9.5, RBC 3.34 L, Hgb 8.5 L, Hct 29.2 L, MCV 87.4, MCH 25.4 L, MCHC 29.1 L, RDW 14.7 H, Plt Count 444, MPV 9.4, Immature Gran % (Auto) 1.80 H, Immature Gran # (Auto) 0.17 H, Neutrophils % 67.0, Lymphocytes % 15.7 L, Monocytes % 11.2 H, Eosinophils % 3.4 H, Basophils % 0.9, Nucleated RBC % 0.0, Neutrophils # 6.4 H, Lymphocytes # 1.49 L, Monocytes # 1.1 H, Eosinophils # 0.3, Absolute Basophils 0.1 Discharge Location: [facility] Disposition: SNF Condition: Stable Discharge Activity: Activity as tolerated Discharge Diet: General/regular food Fpc Therapy: Physical Therapy, Occupation Therapy Referrals: Hamilton Fagan, [employer] [Primary Care Provider] - One Week Additional Patient Instructions (free text): Susie , [facility]. PT/OT to eval and treat. Prescriptions (Any new or edited meds): Famotidine [Pepcid] 40 mg PO HS #30 tab Transmission Status: Pending to [facility] Complete Home Medications List: Complete Home Medication List: Acetaminophen [Tylenol] 650 mg PO Q4H PRN 04/15/21 Calcium Carbonate [Tums] 750 mg PO QID 04/15/21 Carboxymethylcellulose Sodium [Refresh Tears] 1 drp OP BID PRN 04/15/21 Eucalyptus/Menthol [Cough Drops] 1 ea MM Q1H PRN 04/15/21 Ferrous Sulfate [Iron] 325 mg PO BID 04/15/21 Furosemide [Lasix] 20 mg PO DAILY 04/15/21 Gabapentin 300 mg PO TID 04/15/21 Glycerin/Propylene Glycol [Artificial Tears] 1 drp OP TID 04/15/21 Insulin Detemir [Levemir] 20 units SQ DAILY 04/15/21 Latanoprost/Pf [Latanoprost 0.005% Eye Drop] 1 drp OP HS 04/15/21 Lidocaine HCl [Lidocaine HCl Viscous 2%] 1 appl MM QID PRN 04/15/21 Loratadine 10 mg PO DAILY 04/15/21 Losartan Potassium [Cozaar] 50 mg PO DAILY 04/15/21 Mirabegron [Myrbetriq] 50 mg PO DAILY 04/15/21 Multivitamin 1 ea PO DAILY 04/15/21 Omeprazole 20 mg PO DAILY 04/15/21 Pioglitazone HCl [Actos] 45 mg PO HS 04/15/21 Promethazine HCl 12.5 mg PO Q4H PRN 04/15/21 Rosuvastatin Calcium 10 mg PO DAILY 04/15/21 metFORMIN HCL [Metformin HCl] 500 mg PO BID 04/15/21 sitaGLIPtin PHOSPHATE [Januvia] 100 mg PO DAILY 04/15/21 Calcium Polycarbophil [Fiber Laxative] 1,250 mg PO DAILY 04/22/21 Nystatin/Triamcin [Nystatin-Triamcinolone Cream] 1 applic TP BID PRN 04/30/21 Famotidine [Pepcid] 40 mg PO HS #30 tab 05/01/21 Forms: Patient Portal Registration
[2021-05-01 11:55] VITALS: BP 159/59
== END 2021-05-01 12:44 ==
LOC: ER 10:56 → MS 10:56
PROVIDERS: ADMIT Family Medicine; ATTEND Family Medicine